=== PATIENT | male | born 1990 | race African-American/Black ===

== ENCOUNTER 2017-09-04 19:07 | Emergency (ER) | payer SELFPAY ==
--- NOTE | 2017-09-04 19:39 | RADIOLOGY REPORT (SQ) ---
EXAM DESCRIPTION: HAND BILATERAL 3 VIEWS COMPLETED DATE/TIME: 09/04/2017 7:25 pm REASON FOR STUDY: Hand injury COMPARISON: None. EXAM PARAMETERS: NUMBER OF VIEWS: Three views. TECHNIQUE: AP, lateral and oblique radiographic images acquired of the right and left hand. LIMITATIONS: None. FINDINGS: MINERALIZATION: Normal. BONES: No acute fracture or dislocation. No worrisome bone lesions. JOINTS: No effusions. SOFT TISSUES: No soft tissue swelling. No foreign body. OTHER: No other significant finding. IMPRESSION: NEGATIVE STUDY OF THE RIGHT AND LEFT HANDS. NO RADIOGRAPHIC EVIDENCE OF ACUTE INJURY. TECHNICAL DOCUMENTATION: JOB ID: [id number] [employer]- All Rights Reserved
[2017-09-04 19:56] VITALS: BP 124/63
--- NOTE | 2017-09-04 20:52 | ER Document Report ---
ED Hand/Wrist Injury - General Chief Complaint: Hand Injury Stated Complaint: HAND INJURY Time Seen by Provider: 09/04/17 20:40 Mode of Arrival: Ambulatory Information source: Patient Notes: Pt is a 26 year old male who presents to the ER today for bilateral hand pain and some small cuts to fingers on both hands after getting his hands caught while trying to fix a door/door jam today. He states bleeding is controlled. denies numbness/tingling. He was active as of 4 years ago that he believes he is up-to-date on his tetanus. TRAVEL OUTSIDE OF THE [place] IN LAST 30 DAYS: No - Related Data Allergies/Adverse Reactions: No Known Allergies Allergy (Unverified 09/04/17 19:09) Past Medical History - General Information source: Patient - Social History Smoking Status: Former Smoker Family History: Reviewed & Not Pertinent Review of Systems - Review of Systems Constitutional: No symptoms reported EENT: No symptoms reported Cardiovascular: No symptoms reported Respiratory: No symptoms reported Gastrointestinal: No symptoms reported Genitourinary: No symptoms reported Male Genitourinary: No symptoms reported Musculoskeletal: See HPI Skin: See HPI Hematologic/Lymphatic: No symptoms reported Neurological/Psychological: No symptoms reported Physical Exam - Vital signs Vitals: Temp Pulse Resp BP Pulse Ox 98.1 F 57 L 16 124/63 99 09/04/17 19:55 09/04/17 19:55 09/04/17 19:55 09/04/17 19:55 09/04/17 19:55 - Notes Notes: PHYSICAL EXAMINATION: GENERAL: holding ice on left hand, but in no acute distress. HEAD: Atraumatic, normocephalic. EYES: Pupils equal round and reactive to light, extraocular movements intact, sclera anicteric, conjunctiva are normal. NECK: Normal range of motion, supple without lymphadenopathy LUNGS: CTAB and equal. No wheezes rales or rhonchi. HEART: Regular rate and rhythm without murmurs EXTREMITIES: Normal range of motion, no pitting edema. No cyanosis. NEUROLOGICAL: Cranial nerves grossly intact. Normal sensory/motor exams. PSYCH: Normal mood, normal affect. SKIN: Warm, Dry, normal turgor, mild edema to left 4th digit over PCP joint with two small, less than 1cm lacerations, no bleeding, don't open, superficial , mild edma over right 3rd digit PCP joint with one small, less than 1cm laceration, no bleeding, superficial, doesn't open Course - Re-evaluation Re-evalutation: 09/04/17 20:52 x ray negative for fracture or abnormality on both hands, patient feeling much better after holding ice to hands for approximately the last 30 minutes. He states swelling is gone down quite a bit. Patient up-to-date on tetanus within the last 4-[address] patient on antibiotic for 5 days prophylactically. Wounds were bandaged here and bacitracin was placed. - Vital Signs Vital signs: Temp Pulse Resp BP Pulse Ox 98.1 F 57 L 16 124/63 99 09/04/17 19:55 09/04/17 19:55 09/04/17 19:55 09/04/17 19:55 09/04/17 19:55 Discharge - Discharge Clinical Impression: Laceration of fingers without complication Qualifiers: Encounter type: initial encounter Qualified Code(s): S61.219A - Laceration without foreign body of unspecified finger without damage to nail, initial encounter Hand crush injury Qualifiers: Encounter type: initial encounter Laterality: unspecified laterality Qualified Code(s): S67.20XA - Crushing injury of unspecified hand, initial encounter Condition: Stable Disposition: HOME, SELF-CARE Instructions: Antibiotic Ointment Protection ([facility]), Prophylactic Antibiotic ( [facility]), Soap Cleansing ([facility]) Additional Instructions: Return immediately for any new or worsening symptoms. Follow up with primary care provider, call tomorrow to make followup appointment. If you get increased swelling, can't bend your fingers, please return immediately! Prescriptions: Cephalexin Monohydrate [Keflex 500 mg Capsule] 500 mg PO BID 5 Days capsule
== END 2017-09-04 21:30 | disposition home or self-care (01) ==
LOC: ER 19:07
DX: S67.20XA Crushing injury of unspecified hand, initial encounter (principal); S61.219A Laceration without foreign body of unspecified finger without damage to nail, initial encounter; M79.641 Pain in right hand; M79.642 Pain in left hand; X58.XXXA Exposure to other specified factors, initial encounter; Z87.891 Personal history of nicotine dependence
CPT/HCPCS: 99283